=== PATIENT | female | born 1975 | race Two or more races ===

== ENCOUNTER 2024-11-08 07:18 | Inpatient (IN) | payer OTHER ==
[~2024-11-08] VITALS: Ht 167.6 cm; Wt 54.9 kg
[2024-11-08] MEDS ORDERED: TAMOXIFEN CITRA20 MG PO (07:44)
[2024-11-08] MEDS ORDERED: 0.9 % SODIUM CHLORIDE 1,000 ML IV SCH ×2 (08:45→14:15)
[2024-11-08] MEDS ORDERED: BARIUM SULFATE 450 ML ORAL.SUSP PO ONE (08:49)
[2024-11-08 09:12] LABS: BASO % 0.3 % (0.1-1.2); EOS # 0.13 (0.04-0.54); EOS % 2.2 % (0.7-7.0); HEMATOCRIT 37.5 % (34.1-44.9); LYMPH # 1.58 (1.18-3.74); LYMPH % 26.4 % (19.3-53.1); MEAN CORPUSCULAR HEMOGLOBIN 27.1 pg (25.6-32.2); MONO # 0.44 (0.24-0.82); MONO % 7.3 % (4.7-12.5); NEUT % 63.5 % (34.0-71.1); PLATELET COUNT 311 K/uL (163-369); RED BLOOD COUNT 4.43 M/uL (3.93-5.22); RED CELL DISTRIBUTION WIDTH 13.3 % (11.6-14.4)
[2024-11-08 09:17] LABS: ERYTHROCYTE SEDIMENTATION RATE 23 mm/hr (0-30)
[2024-11-08 09:44] LABS: PARTIAL THROMBOPLASTIN TIME 25.5 SECONDS (22.0-34.0); PROTHROMBIN TIME 10.9 SECONDS (9.0-11.5)
[2024-11-08 10:07] LABS: ALBUMIN 3.6 gm/dL (3.4-5.0); BILIRUBIN TOTAL 0.27 mg/dL (0.3-1.2); CALCIUM 9.4 mg/dL (8.5-10.1); CREATININE SERUM 0.83 mg/dL (0.55-1.02); GFR 72.47; GLOBULINA 4.3 G/DL (2.4-3.5); POTASSIUM 3.99 mEq/L (3.5-5.1); TOTAL PROTEIN 7.9 gm/dL (6.4-8.2)
[2024-11-08 10:08] LABS: C-REACTIVE PROTEIN 7.73 MG/DL (0.00-0.29)
[2024-11-08] MEDS ORDERED: MORPHINE SULFATE 4 MG/ML VIAL IV PRN (14:30)
[2024-11-08] MEDS ORDERED: ONDANSETRON HCL 2 MG/ML VIAL IV PRN (14:30)
[2024-11-08] MEDS ORDERED: AA 4.25%/CAL/LYTES/DEXT 5% 1,000 ML PERIFERAL SCH (17:00)
[2024-11-08] MEDS ORDERED: ENOXAPARIN SODIUM 40 MG/0.4 ML SYRINGE SUBCUTANEO SCH (17:00)
[2024-11-08] MEDS ORDERED: LACTOBACILLUS ACIDOPHILUS 1 CAP CAP PO SCH (17:00)
[2024-11-08] MEDS ORDERED: PIPERACILLIN/TAZOBACTAM SODIUM 3.375 GM in DEXTROSE 5 % IN WATER 100 ML IV SCH (18:00)
[2024-11-08] MEDS ORDERED: FAMOTIDINE/PF 20 MG/10 ML SYRINGE IV SCH (21:00)
[2024-11-08] MEDS ORDERED: FAMOTIDINE/PF 20 MG/2 ML VIAL IV SCH (21:00)
[2024-11-09 00:34] VITALS: BP 100/70; O2SAT 98
[2024-11-09 07:33] LABS: BASO % 0.9 % (0.1-1.2); EOS # 0.16 (0.04-0.54); EOS % 3.5 % (0.7-7.0); HEMATOCRIT 32.3 % (34.1-44.9); HEMOGLOBIN 10.6 g/dL (11.2-15.7); LYMPH # 1.12 (1.18-3.74); LYMPH % 24.7 % (19.3-53.1); MEAN CORPUSCULAR HEMOGLOBIN 27.7 pg (25.6-32.2); MONO # 0.44 (0.24-0.82); MONO % 9.7 % (4.7-12.5); NEUT # 2.76 (1.56-6.13); NEUT % 60.8 % (34.0-71.1); PLATELET COUNT 287 K/uL (163-369); RED BLOOD COUNT 3.82 M/uL (3.93-5.22); RED CELL DISTRIBUTION WIDTH 13.4 % (11.6-14.4)
[2024-11-09] MEDS ORDERED: DEXTROSE 5%-WATER 100ML IV.SOLN ONE (07:36)
[2024-11-09 08:00] VITALS: BP 110/76; O2SAT 100
[2024-11-09 08:01] LABS: ALBUMIN 2.9 gm/dL (3.4-5.0); BILIRUBIN TOTAL 0.24 mg/dL (0.3-1.2); CREATININE SERUM 0.79 mg/dL (0.55-1.02); GFR 76.72; POTASSIUM 4.21 mEq/L (3.5-5.1); TOTAL PROTEIN 5.9 gm/dL (6.4-8.2); TSH 1.64 uIU/mL (0.358-3.74)
[2024-11-09 14:18] LABS: PH,URINE 6.5 (5.0-8.0); URINE APPEARANCE Clear; URINE BILIRRUBIN Negative (NEGATIVE); URINE BLOOD Negative; URINE COLOR Yellow; URINE GLUCOSE Negative (NEGATIVE); URINE KETONE Negative (NEGATIVE); URINE LEUKOCYTE Negative; URINE NITRATE Negative; URINE PROTEIN Negative (NEGATIVE); URINE UROBILINOGEN 0.2 E.U./dl
[2024-11-09 14:22] LABS: URINE BACTERIA 4.8 uL (0.0-1933); URINE EPITHELIAL CELLS 6.3 uL (0.0-38.8); URINE RBC 0.7 uL (0.0-20.8); URINE WBC 3.6 uL (0.0-23.2)
[2024-11-09 16:00] VITALS: BP 101/67; O2SAT 100
[2024-11-10 00:52] VITALS: BP 93/57; O2SAT 99
[2024-11-10 08:40] VITALS: BP 98/60; O2SAT 100
[2024-11-10 16:00] VITALS: BP 87/54; O2SAT 99
[2024-11-10 20:00] VITALS: BP 107/70; O2SAT 99
[2024-11-11] VITALS: BP 100/70; O2SAT 98
[2024-11-11 07:05] LABS: BASO % 0.9 % (0.1-1.2); EOS # 0.15 (0.04-0.54); EOS % 4.3 % (0.7-7.0); HEMATOCRIT 34.8 % (34.1-44.9); HEMOGLOBIN 11.5 g/dL (11.2-15.7); LYMPH % 28.7 % (19.3-53.1); MEAN CORPUSCULAR HEMOGLOBIN 27.4 pg (25.6-32.2); MONO # 0.36 (0.24-0.82); MONO % 10.3 % (4.7-12.5); NEUT # 1.94 (1.56-6.13); NEUT % 55.8 % (34.0-71.1); PLATELET COUNT 290 K/uL (163-369); RED CELL DISTRIBUTION WIDTH 12.9 % (11.6-14.4)
[2024-11-11 07:21] LABS: INR 1.03; PROTHROMBIN TIME 11.2 SECONDS (9.0-11.5)
[2024-11-11 07:33] LABS: ALBUMIN 3.1 gm/dL (3.4-5.0); ALKALINE PHOSPHATASE 43 U/L (50-136); ALT/SGPT 14 U/L (12-78); ANION GAP 11 (10.0-20.0); AST/SGOT 13 U/L (15-37); BILIRUBIN TOTAL 0.24 mg/dL (0.3-1.2); BILIRUBIN,CONJUGATED < 0.10 mg/dL (0.0-0.2); BILIRUBIN,UNCONJUGATED 0.14 mg/dL (0.0-0.6); BLOOD UREA NITROGEN 14 mg/dL (7-18); BUN CREA RATIO 18 (7.0-25.0); CALCIUM 9.5 mg/dL (8.5-10.1); CARBON DIOXIDE 29 mEq/L (21-32); CHLORIDE 109 mmol/L (98-107); CHOL HDL RATIO 3.1 (0-5.0); CHOLESTEROL 129 mg/dL (0-200); CREATININE SERUM 0.79 mg/dL (0.55-1.02); GFR 76.72; GLOBULINA 3.3 G/DL (2.4-3.5); GLUCOSE FASTING 96 mg/dL (65-100); HDL 42 mg/dl (40-60); LDL 63 mg/dl (0-130); OSMOLALITY SERUM 287 MOSM/KG (275-295); PHOSPHOROUS 4.6 mg/dL (2.5-4.9); POTASSIUM 4.81 mEq/L (3.5-5.1); SODIUM 144 mmol/L (136-145); TOTAL PROTEIN 6.4 gm/dL (6.4-8.2); TRIGLYCERIDES 120 mg/dL (0-150); VLDL 24 (0-39)
[2024-11-11 07:35] LABS: C-REACTIVE PROTEIN 1.06 MG/DL (0.00-0.29)
[2024-11-11 08:49] VITALS: BP 79/49; O2SAT 100
[2024-11-11 13:17] VITALS: BP 94/60; O2SAT 100
[2024-11-11 16:10] VITALS: BP 99/63; O2SAT 99
[2024-11-12 01:16] VITALS: BP 94/62; O2SAT 98
[2024-11-12 08:38] VITALS: BP 89/54; O2SAT 100
[2024-11-12 16:51] VITALS: BP 92/58; O2SAT 95
[2024-11-13 01:38] VITALS: BP 100/61; O2SAT 100
[2024-11-13 08:26] LABS: BASO % 0.7 % (0.1-1.2); EOS # 0.18 (0.04-0.54); EOS % 4.3 % (0.7-7.0); HEMATOCRIT 35.3 % (34.1-44.9); HEMOGLOBIN 11.8 g/dL (11.2-15.7); LYMPH # 1.23 (1.18-3.74); LYMPH % 29.7 % (19.3-53.1); MEAN CORPUSCULAR HEMOGLOBIN 27.6 pg (25.6-32.2); MONO # 0.54 (0.24-0.82); NEUT # 2.16 (1.56-6.13); NEUT % 52.3 % (34.0-71.1); PLATELET COUNT 286 K/uL (163-369); RED BLOOD COUNT 4.27 M/uL (3.93-5.22); RED CELL DISTRIBUTION WIDTH 12.8 % (11.6-14.4)
[2024-11-13 08:45] VITALS: BP 80/52; O2SAT 100
[2024-11-13 09:06] LABS: ALBUMIN 3.3 gm/dL (3.4-5.0); BILIRUBIN TOTAL 0.37 mg/dL (0.3-1.2); CALCIUM 9.4 mg/dL (8.5-10.1); CREATININE SERUM 0.94 mg/dL (0.55-1.02); GFR 62.78; GLOBULINA 3.2 G/DL (2.4-3.5); MAGNESIUM 2.2 mg/dL (1.8-2.4); PHOSPHOROUS 4.1 mg/dL (2.5-4.9); POTASSIUM 4.77 mEq/L (3.5-5.1); TOTAL PROTEIN 6.5 gm/dL (6.4-8.2)
[2024-11-13 09:07] LABS: C-REACTIVE PROTEIN 0.4 MG/DL (0.00-0.29)
[2024-11-13] MEDS ORDERED: DIATRIZOATE MEGLUMINE, SODIUM 30 ML BOTTLE PO NR (09:30)
[2024-11-13] MEDS ORDERED: TUBERCULIN,PURIF.PROT.DERIV. 5 TU/0.1 ML VIAL ID NR (09:30)
[2024-11-13] MEDS ORDERED: METHYLPREDNISOLONE SOD SUCC 40 MG VIAL IV SCH (09:31)
[2024-11-13 16:51] VITALS: BP 116/73; O2SAT 100
[2024-11-14 00:47] VITALS: BP 92/58; O2SAT 100
[2024-11-14 08:39] VITALS: BP 94/57; O2SAT 97
[2024-11-14 17:04] VITALS: BP 100/54; O2SAT 99
[2024-11-15] VITALS: BP 105/64; O2SAT 98
[2024-11-15 08:00] VITALS: BP 92/56; O2SAT 100
[2024-11-15 21:21] VITALS: BP 98/52; O2SAT 100
[2024-11-16 01:02] VITALS: BP 99/64; O2SAT 98
[2024-11-16 08:29] VITALS: BP 91/55; O2SAT 96
[2024-11-16] MEDS ORDERED: PREDNISONE 20 MG TABLET PO SCH (09:00)
[2024-11-16] MEDS ORDERED: PREDNISONE20 MG PO (14:15)
[2024-11-16 16:00] VITALS: BP 99/60; O2SAT 100
== END 2024-11-16 17:36 | disposition home or self-care (01) | DRG 391 ==
LOC: ER 07:18 → SURH 15:10
PROVIDERS: Emergency Medicine; ADMIT Internal Medicine Geriatric Medicine; ATTEND Internal Medicine Geriatric Medicine
PROC: BW21YZZ Computerized Tomography (CT Scan) of Abdomen and Pelvis using Other Contrast (ICD-10-PCS; principal; 2024-11-08)
PROC: BU46YZZ Ultrasonography of Uterus using Other Contrast (ICD-10-PCS; 2024-11-09)
PROC: BW21YZZ Computerized Tomography (CT Scan) of Abdomen and Pelvis using Other Contrast (ICD-10-PCS; 2024-11-13)
DX: K52.9 Noninfective gastroenteritis and colitis, unspecified (principal); K63.1 Perforation of intestine (nontraumatic); K50.00 Crohn's disease of small intestine without complications; D64.9 Anemia, unspecified; R06.02 Shortness of breath